=== PATIENT | male | born 1980 | race Caucasian/White ===

== ENCOUNTER 2020-01-11 18:40 | Inpatient (IN) | payer BC, SELFPAY ==
--- NOTE | ~2020-01-11 | XR_ITS ---
EXAMINATION: XR foot LT 2V EXAM DATE: 01/11/2020 19:26 INDICATION: Lesion lateral plantar aspect left foot or callous was removed one week ago. TECHNIQUE: Left foot dorsoplantar, lateral projections obtained and reviewed. There is no prior ciro dy for comparison. FINDINGS: Status post left fifth transmetatarsal amputation. On the lateral projection along the vola r aspect of the amputation stump there is subtle ill-defined lucency, possible osseous erosion. There is also periosteal reaction along the fifth metatarsal shaft which could be healing response from th e amputation if within the last 3-6 months, or could indicate more chronic osteomyelitis. Possible ac oby or chronic osteomyelitis. There is some swelling overlying the lateral aspect of the foot. There is no subcutaneous gas. There are no acute fractures identified. IMPRESSION: 1. Status post left fifth transmetatarsal amputation with shaft periostitis and possible small erosi on at the distal end of the metatarsal. Possible acute or chronic osteomyelitis. Are there any prior studies for comparison? 2. Lateral soft tissue swelling. Reviewed, dictated and finalized at location A. IMPRESSION: 1. Status post left fifth transmetatarsal amputation with shaft periostitis an d possible small erosion at the distal end of the metatarsal. Possible acute or chronic osteomyelitis. Are there any prior studies for comparison? 2. Lateral soft tissue swelling.
[2020-01-11 18:48] VITALS: BP 137/77; PULSE 87; RESP 20; TEMP 37.9; O2SAT 97
--- NOTE | 2020-01-11 19:03 | ED.LOWEXIN ---
HPI - Extremity Injury (Lower) General Chief Complaint: Extremity Injury, Lower Stated Complaint: L foot pain Source: patient History of Present Illness HPI Narrative: this is a 39-year-old male presents with a lesion on the plantar surface of his left foot with some status post amputation of his 5th toe was recently seen in emergency department in [place] and had a callus removed and was placed on antibiotics, the patient is originally from [place] did follow-up with primary care physician and had an x-ray and never received results and that occurred approximately 1 week ago. Currently the patient is having some bleeding from the lesion from that plantar callus that was removed approximately 3 weeks ago in the ER in [place], there is no warmth and redness that is tracking up into his left foot with a good radial pulse no pain or tenderness. Currently there is no fever chills patient has a history of hypertension and history of tobacco use. Injury: Left: foot ( Lesion the bottom of his left foot with redness) Context: other ( redness and warmth in his left lateral foot with a a small lesion to the lateral aspect of the plantar surface of his foot) Other symptoms: none Related Data Home Medications Medication Instructions Recorded Confirmed atenolol 100 mg PO DAILY 01/11/20 01/11/20 lisinopril 40 mg PO DAILY 01/11/20 01/11/20 paroxetine HCl 20 mg PO QAM 01/11/20 01/11/20 Allergies Allergy/AdvReac Type Severity Reaction Status Date / Time No Known Allergies Allergy Verified 01/11/20 18:59 Review of Systems Review of Systems: All systems reviewed & are unremarkable except as noted in HPI and below PMFSH Past Medical History Medical History HTN (hypertension) Social History Social History Gender identity (if verbalized by the patient): Male Exam Const: General: no acute distress Nutritional Appearance: well nourished Orientation/consciousness: patient oriented x3 HENMT: Head: normal to inspection Eyes: Pupils: Equal, round and reactive pupils present Neck: Neck: normal visual inspection, no lymphadenopathy and lymphadenopathy Chest: Chest palpation & inspection: normal inspection of the chest Resp: Effort & Inspection: normal respiratory effort Cardio: Rate: regular rate GI: GI Palp: Yes Soft to palpation : Testes: Testes normal Skin: Wounds: wounds noted ( small round lesion located the lateral aspect of his left plantar foot ) Neuro: General: patient oriented x3 Course Course Emergency Course: re-evaluation of patient, patient currently with a temp of a 100.2? the lesion on his left plantar foot appears to track and x-ray shows possible acute versus chronic osteomyelitis without any comparison films. Vital Signs Vital signs: Vital Signs Temperature 37.9 C H 01/11/20 18:48 Pulse Rate 87 01/11/20 18:48 Respiratory Rate 20 01/11/20 18:48 Blood Pressure 137/77 01/11/20 18:48 Pulse Oximetry 97 01/11/20 18:48 Temperature 37.9 C H 01/11/20 18:48 Pulse Rate 87 01/11/20 18:48 Respiratory Rate 20 01/11/20 18:48 Blood Pressure 137/77 01/11/20 18:48 Pulse Oximetry 97 01/11/20 18:48 MDM - Extremity Injury (Lower) Lab Data Result diagrams: 01/11/20 19:40 Labs: Lab Results 01/11/20 Range/Units 19:40 WBC 15.8 H (4.8-10.8) K/mm3 RBC 4.11 L (4.70-6.10) M/mm3 Hgb 12.5 L (14.0-18.0) g/dL Hct 38.6 L (40.0-54.0) % MCV 93.9 (78.0-102.0) fL MCH 30.4 (27.0-31.0) pg MCHC 32.4 (32.0-36.0) g/dL RDW 13.9 (11.6-14.4) % Plt Count 209 (150-420) K/mm3 MPV 10.6 (8.7-11.0) fl Critical Care Time Critical Care Time Critical Care Time: No Discharge Plan Discharge Clinical Impression: Cellulitis and abscess of foot, Osteomyelitis of ankle or foot, left, acute [facility]
[2020-01-11] MEDS: cefTRIAXone 1 GM VIAL IM (19:22)
[2020-01-11] MEDS: LIDOCAINE HCL 1% LOCAL INJ 20 ML VIAL (19:22)
[2020-01-11 19:55] LABS: Hematocrit 38.6 % (40.0-54.0); Hemoglobin 12.5 g/dL (14.0-18.0); Mean Corpuscular HGB Conc 32.4 g/dL (32.0-36.0); Mean Corpuscular Hemoglobin 30.4 pg (27.0-31.0); Mean Corpuscular Volume 93.9 fL (78.0-102.0); Mean Platelet Volume 10.6 fl (8.7-11.0); Platelet Count Result 209 K/mm3 (150-420); Red Blood Count 4.11 M/mm3 (4.70-6.10); Red Cell Distribution Width 13.9 % (11.6-14.4); White Blood Count 15.8 K/mm3 (4.8-10.8)
--- NOTE | 2020-01-11 20:00 | PC.NURSE ---
Wound culture obtained by Dr Hernandez and sent to lab.
[2020-01-11 20:02] VITALS: BP 120/65; PULSE 79; RESP 20; O2SAT 97
[2020-01-11 20:22] VITALS: BMI 93.4
[2020-01-11 20:42] LABS: CRP 20.5 mg/dL (0.0-0.9)
[2020-01-11] MEDS: SODIUM CHLORIDE 0.9% IV 1,000 ML 100 ML IV CONT (20:42)
[2020-01-11 20:56] VITALS: BP 115/68; PULSE 77; RESP 14; TEMP 37.3; O2SAT 100
[2020-01-12] VITALS (7 sets, daily range): BP systolic 116–129; BP diastolic 59–72; PULSE 68–96; RESP 14–20; TEMP 36–38.6; O2SAT 97–100; BMI 43.2
[2020-01-12] MEDS: SODIUM CHLORIDE 0.9% IV 1,000 ML 100 ML IV CONT (07:52)
[2020-01-12] MEDS: ONDANSETRON INJ 4 MG/2 ML VIAL IV PUSH (07:53)
[2020-01-12] MEDS: ACETAMINOPHEN 325 MG TABLET 650 MG PO (07:59)
[2020-01-12] MEDS: atenoloL 50 MG TABLET 100 MG PO (08:04)
[2020-01-12] MEDS: lisinopriL 20 MG TABLET 40 MG PO (08:04)
[2020-01-12] MEDS: PAROXETINE 20 MG TABLET PO (08:04)
[2020-01-12 08:32] LABS: Basophils Absolute Auto 0.01 K/mm3 (0.00-0.10); Basophils Percent Auto 0.1 % (0.0-1.0); Eosinophils Absolute Auto 0.02 K/mm3 (0.02-0.50); Eosinophils Percent Auto 0.2 % (1.0-6.0); Hemoglobin 11.2 g/dL (14.0-18.0); Immature Granulocyte Absolute 0.05 K/mm3 (0.00-0.00); Immature Granulocyte Percent A 0.5 % (0.0-0.0); Lymphocytes Absolute Auto 0.89 K/mm3 (1.10-4.50); Lymphocytes Percent Auto 8.5 % (18.0-42.0); Mean Corpuscular HGB Conc 33.9 g/dL (32.0-36.0); Mean Corpuscular Hemoglobin 31.5 pg (27.0-31.0); Mean Platelet Volume 10.5 fl (8.7-11.0); Monocytes Absolute Auto 0.61 K/mm3 (0.10-0.90); Monocytes Percent Auto 5.8 % (2.0-11.0); Neutrophils Absolute Auto 8.9 K/mm3 (1.7-7.2); Neutrophils Percent Auto 84.9 % (50.0-70.0); Platelet Count Result 155 K/mm3 (150-420); Red Blood Count 3.55 M/mm3 (4.70-6.10); Red Cell Distribution Width 13.8 % (11.6-14.4); White Blood Count 10.4 K/mm3 (4.8-10.8)
[2020-01-12 08:47] LABS: Alanine Aminotransferase 27 U/L (16-63); Albumin Level 2.9 g/dL (3.4-5.0); Alkaline Phosphatase 80 U/L (46-116); Anion Gap 13.3 mmol/L (7-16); Aspartate Amino Transferase 52 U/L (15-37); Bilirubin,Total 0.9 mg/dL (0.00-1.00); Blood Urea Nitrogen 12 mg/dL (7-18); Calcium 8.3 mg/dL (8.5-10.1); Carbon Dioxide 26 mmol/L (21-32); Chloride 98 mmol/L (98-108); Estimated CRCL calculation 222 ml/min; Estimated Glomerular Filt Rate > 60; Glucose 162 mg/dL (70-99); Osmolality Calculated 279 mOsm/kg (285-295); Potassium 4.3 mmol/L (3.5-5.1); Sodium 133 mmol/L (136-145); Total Protein 6.6 g/dL (6.4-8.2)
[2020-01-12 10:39] LABS: Magnesium 1.5 mg/dL (1.8-2.4); Phosphorus 3.6 mg/dL (2.6-4.7)
[2020-01-12 10:52] LABS: Lactic Acid 1.5 mmol/L (0.4-2.0); Thyroid Stimulating Hormone Reflex 1.11 u/IU/mL (0.36-3.74)
[2020-01-12 10:56] LABS: CRP 22.4 mg/dL (0.0-0.9)
[2020-01-12] MEDS: CLINDAMYCIN 600 MG/D5W 50 ML 600 MG/50 ML PIGGYBACK 100 MG IVPB (11:28)
[2020-01-12 11:56] LABS: Hemoglobin A1C 8.4 % (<5.7)
--- NOTE | 2020-01-12 12:22 | PM.IMHP ---
H&P: HPI History of Present Illness Chief complaint: L foot pain Narrative: Trevon Wade is a 39 year old male admitted yesterday to the ER due to left foot pain and drainage to a wound. He presented with a lesion on the plantar surface of his left foot with redness. He has a history of status post amputation of his 5th toe from summer, which had completely healed. He was also seen in emergency department in [place] around December 26, 2019 and had a callus removed and was placed on antibiotics. The antibiotics was Keflex which he completed taking around January 06. The patient is originally from [place] but has been traveling for his work. He was unable to follow-up with primary care physician. He reported having an x-ray and never received results, approximately 1 week ago. At his ED admission yesterday, the patient was having some bleeding from the lesion from that plantar callus that was removed approximately 3 weeks ago in the ER in [place]. There was redness and warmth in his left lateral foot with a a small lesion to the lateral aspect of the plantar surface of his foot, no tracking redness, has good radial pulse, no pain or tenderness. At ED admission, there was temp of a 100.2? fever, no chills. Patient has a history of hypertension and history of tobacco use. He was admitted for Cellulitis and abscess of foot, Osteomyelitis of ankle of left foot. Today Trevon's vital signs were stable, he is feeling better, and his white count improved from 15.8 yesterday to 10.4 today. He has history of HTN, denies neuropathy history, and adamently denies any history of diabetes. When I examined his left foot wound, it appears to be a well developed callous. The redness had dissipated to a pink color and the drainage from his callus was sero-sangeous with some blood tinge, very very minor blood in the drainage. The nursing staff cleansed the wound and dressed with gauze. The dressings have been lasting 8-12 hours with minimal drainage on them. Trevon did have an elevated temp this morning which was treated with oral Tylenol and resolved. Trevon hoping for discharge today. 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 On 01/11/2020, his left foot Lesion with a lateral plantar aspect callous XRAY showed: Status post left fifth transmetatarsal amputation. On the lateral projection along the volar aspect of the amputation stump there is subtle ill-defined lucency, possible osseous erosion. There is also periosteal reaction along the fifth metatarsal shaft which could be healing response from the amputation if within the last 3-6 months, or could indicate more chronic osteomyelitis. Possible acute or chronic osteomyelitis. There is some swelling overlying the lateral aspect of the foot. There is no subcutaneous gas. There are no acute fractures identified. IMPRESSION:1. Status post left fifth transmetatarsal amputation with shaft periostitis and possible small erosion at the distal end of the metatarsal. Possible acute or chronic osteomyelitis. No studies available to compare. 2. Lateral soft tissue swelling. Trevon was given a copy of his foot x-ray report, it was explained that he likely has osteomyelitis which would require an MRI, and that we do not have MRI here until Monday. A CT scan with contrast dye was discussed but with his current A1c level and the COVID pandemic, it was decided that a CT scan with dye was not worth the risk at this time to the patient. Trevon voiced understand that he would need further workup from his crm marketing manager to rule out PVD and/or PAD. He also voiced understanding that his A1c was elevated above 8 meaning his average glucose levels were above 180 and that he would ne
--- NOTE | 2020-01-12 12:40 | PC.NURSE ---
Patient declined wheelchair for transport from room to hospital exit. Patient ambulated, accompanied by nurse, to hospital main doors.
--- NOTE | 2020-01-12 12:59 | PM.DS ---
DS: Diagnosis Admitting Diagnosis Admitting Diagnosis: Hypomagnesemia <Felisa Mccartney NP - Last Filed: 01/12/20 14:08> Discharge Diagnosis (1) Osteomyelitis of ankle or foot, left, acute: Onset Date: ~01/11/20 <Felisa Mccartney NP - Last Filed: 01/12/20 14:08> Code(s): M86.172 - Other acute osteomyelitis, left ankle and foot <Felisa Mccartney NP - Last Filed: 01/12/20 14:08> Status: Acute <Felisa Mccartney NP - Last Filed: 01/12/20 14:08> Assessment and Plan: at risk due to severe obesity, stress on feet, work that requires him to be on his feet more, possibly poor fitting shoes, current and history of smoking, and his newly found elevated A1C level. xray left foot showed: Possible acute or chronic osteomyelitis. There is some swelling overlying the lateral aspect of the foot. There is no subcutaneous gas. There are no acute fractures identified. IMPRESSION:1. Status post left fifth transmetatarsal amputation with shaft periostitis and possible small erosion at the distal end of the metatarsal. Possible acute or chronic osteomyelitis. No studies available to compare. 2. Lateral soft tissue swelling. received IV Zosyn x 3 and Rocephin IV x1 dose. TODAY redness had resolved. Drainage was controlled. Patient tolerating IV antibiotics. White count improved from 15.8 yesterday to 10.4 today. vital signs were stable, feeling better, patient was agreeable to discharge today and voiced understanding that he was expected to travel straight home to [place] today; and also voiced understand of the expectation that he is to call his football pad repairer and his PCP 1st thing tomorrow morning to make follow-up appointments to be seen in 1-3 days. Discharged him with Clindamycin oral antibiotic orders and Wound Dressing change instructions as well as Wound/dressing changes materials (wound cleanser/gauze/tape) He needs to get back to his own Wound Care Specialist Surgeon [place]EL (who did the amputation within the last year) and get worked up for osteomylitis. Due to a very real and possible need for him to have surgery, it is BEST for the patient to be back at his home, where his necessary support is to assist him getting to appointments, and where he will have familiar care, should his Foot surgeon decide to do surgery sooner than later. Trevon was given a copy of his foot x-ray report, it was explained that he likely has osteomyelitis which would require an MRI, and that we do not have MRI here until Monday. A CT scan with contrast dye was discussed but with his current A1c level and the COVID pandemic, it was decided that a CT scan with dye was not worth the risk at this time to the patient. Trevon voiced understand that he would need further workup from his football pad repairer to rule out PVD and/or PAD. Trevon informed me that he would follow up with his primary care provider: Ziyad Kauffman a nurse practitioner in [place]. Trevon informed me that he would ALSO follow up with his Wound Care Specialist surgeon from [place], [place]. FAXING his H & P note and DISCHARGE NOTE to his PCP for them to Follow up with the patient on. <Felisa Mccartney NP - Last Filed: 01/12/20 14:08> (2) Cellulitis and abscess of foot: Onset Date: ~01/11/20 <Felisa Mccartney NP - Last Filed: 01/12/20 14:08> Code(s): L03.119 - Cellulitis of unspecified part of limb; L02.619 - Cutaneous abscess of unspecified foot <Felisa Mccartney NP - Last Filed: 01/12/20 14:08> Status: Acute <Felisa Mccartney NP - Last Filed: 01/12/20 14:08> Assessment and Plan: presented with a lesion on the plantar surface of his left foot with redness. history of status post amputation of his 5th toe from summer, which had completely healed. in emergency department in [place] around December 26, 2019 and had a callus removed and was placed on antibiotics. The antibiotics was Keflex which he completed taking around January 06. admitted yeste
--- NOTE | 2020-01-21 08:23 | PCWOUND ---
Received culture results, (+) MRSA to left foot. pt was admitted for inpatient services. received clindamycin and zosyn which is susceptible treatment. no action needed. pt has been discharged. per Camilla rivero rn charge nurse, mariano mendoza has called patient and family doctor and notified of status.
== END 2020-01-12 12:40 | disposition home or self-care (01) | DRG 603 ==
LOC: CHSED 19:50 → CHS2ND 20:14
PROVIDERS: Nurse Practitioner; Admitting Provider Emergency Medicine; Emergency Provider Emergency Medicine; Visit Provider Emergency Medicine
DX: L02.612 Cutaneous abscess of left foot (principal); L03.116 Cellulitis of left lower limb; M86.172 Other acute osteomyelitis, left ankle and foot; R78.81 Bacteremia; I10 Essential (primary) hypertension; E11.9 Type 2 diabetes mellitus without complications; E83.42 Hypomagnesemia; Z89.422 Acquired absence of other left toe(s)
CPT/HCPCS: 36415; 73620; 80053; 83036; 83605; 83735; 84100; 84443; 85025; 85027; 86140; 87040; 87070; 87075; 87077; 87186; 87205; 96372; 99283; 99285; A9270; J0696; J2405; J2543; J7030

== ENCOUNTER 2020-02-14 18:33 | Emergency (ER) | payer BC, SELFPAY ==
[2020-02-14 18:47] VITALS: BP 152/90; PULSE 96; RESP 20; TEMP 37; O2SAT 99
--- NOTE | 2020-02-14 18:51 | ED.EXTPRO ---
HPI - Extremity Problem General Chief complaint: Extremity Problem,Nontraumatic Stated complaint: infection in foot Source: patient Mode of arrival: ambulatory Limitations: no limitations History of Present Illness HPI Narrative: Pt has had chronic foot wound on and off for several years. about a month ago it popped up and he has been having it monitored by a ward secretary in his hometown. He is alert and in no distress. He checks his temp at least 5 times a day, and noted that the temp was 99.6 tonight and he started taking clindamycin that he had left over. He was worried that the infection was returning. He admits that the foot looks pretty normal for the time of day. He states the swelling isnt as bad as usual, and denies any new swelling or redness. we discussed a fever as being over 100.4. I told him it was not necessary to check his temps unless he did have symptoms. His only other symptom was some mild nausea that he thinks is because of some food he ate yesterday- mushroom and filipino burger and pizza. MD Complaint: extremity pain Pain Consistency: other (only when he gets up and walks on it) Location: left Radiation: none Relieving factors: rest (this is unchanges from beginning of foot problem) Related Data Home Medications Medication Instructions Recorded Confirmed atenolol 100 mg PO DAILY 01/11/20 02/14/20 lisinopril 40 mg PO DAILY 01/11/20 02/14/20 paroxetine HCl 20 mg PO QAM 01/11/20 02/14/20 Allergies Allergy/AdvReac Type Severity Reaction Status Date / Time No Known Allergies Allergy Verified 01/11/20 18:59 Review of Systems Review of Systems: All systems reviewed & are unremarkable except as noted in HPI and below Constitutional: Constitutional: Reports no additional constitutional complaints ENT: Reports as per HPI Cardiovascular: Cardiovascular: Reports as per HPI Respiratory: Respiratory: Reports as per HPI Gastrointestinal: Gastrointestinal: Reports as per HPI Musculoskeletal: Musculoskeletal: Reports no additional musculoskeletal complaints Integumentary/Breasts: Skin/Breast: Reports system reviewed and no additional complaints, except as docu Neurologic: Reports system reviewed and no additional complaints, except as documented and Reports as per HPI Psychiatric: Psychiatric: Reports no additional psychiatric complaints and Reports as per HPI Endocrine: Endocrine: Reports no additional endocrine complaints and Reports as per HPI Hematologic/Lymphatic: Hematologic/Lymphatic: Reports no additional hematologic/lymphatic complaints and Reports as per HPI Allergic/Immunologic: Allergic/Immunologic: Reports no additional allergic/immunologic complaints PMFSH Past Medical History Medical History Amputation of fifth toe of left foot Callus HTN (hypertension) (Unknown) Family History Family History Father No problems noted. Other Unknown family medical history Social History Social History Smoking packs per day: 2 Smoking cigarettes per day: 40.0 Smoking status: Current every day smoker Tobacco type: cigarettes Second hand tobacco smoke exposure: No Alcohol intake: current Drinks per week: 3 Substance use: never Substance use type: does not use Gender identity (if verbalized by the patient): Male Spiritual care concerns: No Agree to blood products: Yes Exam Const: General: no acute distress and alert Nutritional Appearance: well nourished Orientation/consciousness: patient oriented x3 HENMT: Head: normal to inspection Chest: Chest palpation & inspection: normal inspection of the chest Resp: Effort & Inspection: normal respiratory effort Auscultation: clear to auscultation bilaterally Cardio: Rate: regular rate Rhythm: regular rhythm GI: Inspection: non-disten
[2020-02-14 19:15] VITALS: BP 120/82
== END 2020-02-14 19:15 | disposition home or self-care (01) ==
PROVIDERS: Emergency Provider Emergency Medicine
DX: L02.619 Cutaneous abscess of unspecified foot (principal)
CPT/HCPCS: 99281; 99282